=== PATIENT | female | born 1990 | race Two or more races ===

== ENCOUNTER 2021-09-04 22:36 | Emergency (ER) | payer OTHER ==
[~2021-09-04] VITALS: Ht 162.6 cm; Wt 44.5 kg
[2021-09-05 00:44] VITALS: BP 142/91
== END 2021-09-05 02:36 | disposition home or self-care (01) ==
LOC: ER 22:38
DX: S00.03XA Contusion of scalp, initial encounter (principal); Y04.2XXA Assault by strike against or bumped into by another person, initial encounter; Y93.89 Activity, other specified; Y92.89 Other specified places as the place of occurrence of the external cause; Y99.8 Other external cause status
CPT/HCPCS: 70450